=== PATIENT | female | born 1995 | race American Indian/Alaskan Native ===

== ENCOUNTER 2016-12-19 19:56 | Emergency (ER) | payer MEDICAID ==
[2016-12-19 20:05] VITALS: O2SAT 98
[2016-12-19] MEDS ORDERED: Sodium Chloride 0.9% 1,000 ML IV ONE (20:30)
[2016-12-19] MEDS ORDERED: Sodium Chloride 0.9% 1,000 ML ONE (20:47)
[2016-12-19 20:54] LABS: BASO % 0.3 % (0.0-2.0); EOS % 0.3 % (0.0-4.0); HEMATOCRIT 37.9 % (34.0-47.0); LYMPH % 9.1 % (20.0-40.0); MEAN CELL VOLUME 75.1 fL (81.0-99.0); MEAN CORPUSCULAR HEMOGLOBIN 23.7 pg (27.0-31.0); MEAN CORPUSCULAR HGB CONC 31.6 g/dL (33.0-37.0); MEAN PLATELET VOLUME 9.3 fL (7.2-11.7); MONO # 0.5 K/uL (0.0-0.8); MONO % 4.4 % (0.0-10.0); PLATELET COUNT 257 K/uL (130-400); RED CELL DISTRIBUTION WIDTH 14.3 % (11.5-14.5)
[2016-12-19 20:59] LABS: CHLORIDE 98 mmol/L (98-107); POTASSIUM 3.9 mmol/L (3.6-5.2); SODIUM 140 mmol/L (132-148); WHITE BLOOD COUNT 10.6 K/uL (4.8-10.8)
[2016-12-19 21:01] LABS: BILIRUBIN,TOTAL 0.5 mg/dL (0.2-1.3); CARBON DIOXIDE 24 mmol/L (22-30); GFR AFRICAN-AMERICAN > 60
[2016-12-19 21:02] LABS: ALB/GLOB RATIO 1.2 (1.0-2.1); ALKALINE PHOSPHATASE 61 U/L (38-126); ALT/SGPT 11 U/L (9-52); AST/SGOT 13 U/L (14-36); BLOOD UREA NITROGEN 14 mg/dL (7-17); CALCIUM 8.9 mg/dl (8.6-10.4); GLUCOSE,RANDOM 89 mg/dL (65-105); TOTAL PROTEIN 7.9 g/dL (6.3-8.3)
--- NOTE | 2016-12-19 21:02 | C.PDOC ---
History Of Present Illness A P:0 21 year old female presents to the emergency room with complaints of epigastric discomfort and vomiting that began earlier today. There are no exacerbating or relieving factors. Patient denies being , any back pain , constipation, hematuria, incontinence, dysuria, vaginal bleeding, vaginal discharge, fever, chills, diarrhea, or any other complaints. Time Seen by Provider: 12/19/16 20:27 Chief Complaint (Nursing): Abdominal Pain History Per: Patient History/Exam Limitations: no limitations Onset/Duration Of Symptoms: Hrs Current Symptoms Are (Timing): Still Present Severity: Mild Location Of Pain/Discomfort: Epigastric Radiation Of Pain To:: None Quality Of Discomfort: "Pain" Associated Symptoms: denies: Fever, Chills, Nausea, Vomiting, Diarrhea, Back Pain, Constipation, Urinary Symptoms Exacerbating Factors: None Alleviating Factors: None Recent travel outside of the [place]: No Abnormal Vaginal Bleeding: No Past Medical History Reviewed: Historical Data, Nursing Documentation, Vital Signs Vital Signs: Last Vital Signs Temp 98.4 F 12/19/16 20:02 Pulse 89 12/19/16 20:02 Resp 16 12/19/16 20:02 BP 124/84 12/19/16 20:02 Pulse Ox 98 12/19/16 21:05 Family History: States: Unknown Family Hx - Social History Hx Tobacco Use: No Hx Alcohol Use: No Hx Substance Use: No - Immunization History Hx Influenza Vaccination: No Hx Pneumococcal Vaccination: No Review Of Systems Except As Marked, All Systems Reviewed And Found Negative. Constitutional: Negative for: Fever, Chills Gastrointestinal: Positive for: Vomiting, Abdominal Pain (Epigastric). Negative for: Diarrhea, Constipation Genitourinary: Negative for: Dysuria, Frequency, Incontinence, Hematuria, Vaginal Discharge, Vaginal Bleeding Musculoskeletal: Negative for: Back Pain Physical Exam - Physical Exam Appears: Non-toxic, Other (Tall black woman.) Skin: Normal Color, Warm, Dry Head: Atraumatic, Normacephalic Neck: Normal ROM, No Midline Cervical Tenderness, No Paracervical Tenderness, Supple Chest: Symmetrical, No Tenderness Cardiovascular: Rhythm Regular Respiratory: Normal Breath Sounds, No Rales, No Rhonchi, No Wheezing Gastrointestinal/Abdominal: Soft, No Tenderness, No Distention, No Guarding, No Rebound Back: Normal Inspection, No CVA Tenderness, No Vertebral Tenderness Extremity: Normal ROM, No Tenderness Neurological/Psych: Oriented x3, Normal Speech, Normal Cognition Gait: Steady ED Course And Treatment - Laboratory Results Result Diagrams: 12/19/16 20:46 12/19/16 20:46 Lab Interpretation: Normal (ua, tox, etoh neg) Urine POC: Negative O2 Sat by Pulse Oximetry: 98 - Radiology CXR: Interpreted by Me CXR Interpretation: Yes: No Acute Disease - Other Rad abd x2 X-Ray: Interpreted by Me (wnl) Medical Decision Making Medical Decision Making: Plan: -- Labs -- Obstructive Series X-ray -- Zofran & Pepcid vomiting, no diarrhea, not pregant. Disposition Doctor Will See Patient In The: Office Counseled Patient/Family Regarding: Studies Performed, Diagnosis - Disposition Disposition: HOME/ ROUTINE Disposition Time: 21:51 Condition: GOOD - Clinical Impression Clinical Impression: Vomiting - Scribe Statement The provider has reviewed the documentation as recorded by the Rashid Evans Provider Scribe Attestation: All medical record entries made by the Rashid were at my direction and personally dictated by me. I have reviewed the chart and agree that the record accurately reflects my personal performance of the history, physical exam, medical decision making, and the department course for this patient. I have also personally directed, reviewed, and agree with the discharge instructions and disposition.
[2016-12-19 21:03] LABS: ALCOHOL SERUM < 10 mg/dl (0-10)
[2016-12-19 21:07] LABS: RBC URINE < 1 /hpf (0-3); TRANSITIONAL EPITHIAL < 1 /hpf (0-3); URINE BACTERIA RARE (<OCC); URINE BILIRUBIN NEGATIVE (NEGATIVE); URINE BLOOD NEGATIVE (NEGATIVE); URINE COLOR Yellow (YELLOW); URINE GLUCOSE (UA) NORMAL (Normal); URINE KETONE NEGATIVE (NEGATIVE); URINE LEUKOCYTE ESTERASE NEG Leu/uL (Negative); URINE PROTEIN 1+ mg/dL (NEGATIVE); URINE UROBILINOGEN NORMAL mg/dL (0.2-1.0); WBC URINE 1 /hpf (0-5)
[2016-12-19 21:58] VITALS: BP 133/79; PULSE 82; RESP 17; TEMP 97.9
[2016-12-19 22:27] LABS: NEUTROPHIL 85 % (50-75); TOTAL CELLS COUNTED 100
[2016-12-19 22:28] LABS: LARGE PLATELETS PRESENT
--- NOTE | 2016-12-20 10:30 | RAD ---
PROCEDURE: Radiographs of the chest and abdomen (obstructive series) HISTORY: abd pain COMPARISON: No prior. TECHNIQUE: AP radiograph of the chest, with upright and supine radiographs of the abdomen. FINDINGS: CHEST: Lungs: Clear. Cardiovascular: Normal size heart. No pulmonary vascular congestion. Pleura: No pleural fluid. No pneumothorax. Other findings: None. ABDOMEN AND PELVIS: Bowel: Unremarkable bowel gas pattern. No evidence of mechanical obstruction. Free air: None. Bones: Unremarkable. Other findings: None. IMPRESSION: Unremarkable radiographs of chest and abdomen. No evidence of mechanical bowel obstruction.
== END 2016-12-19 22:00 | disposition home or self-care (01) ==
LOC: C.ER 19:56
DX: R11.10 Vomiting, unspecified (principal)
CPT/HCPCS: 74022; 80053; 80320; 80324; 80345; 80346; 80349; 80353; 80358; 80361; 81001; 83690; 83992; 84703; 85025; 96361; 96374; 96375; 99284; J2405; J7040

== ENCOUNTER 2017-06-06 02:15 | Emergency (ER) | payer MEDICAID ==
[2017-06-06 02:27] VITALS: BP 132/68; PULSE 84; RESP 16; TEMP 98.1; O2SAT 100
--- NOTE | 2017-06-06 03:07 | C.PDOC ---
History Of Present Illness The patient is a 21yo female, presents to the ED for evaluation of a painful lump in her left axilla, present for the past two days. She denies any trauma to the area and also denies any fever or drainage from the area. She offers no other medical complaints. Time Seen by Provider: 06/06/17 02:33 Chief Complaint (Nursing): Abnormal Skin Integrity History Per: Patient History/Exam Limitations: no limitations Onset/Duration Of Symptoms: Days (2) Current Symptoms Are (Timing): Still Present Quality Of Symptoms: Painful Recent travel outside of the [place]: No Additional History Per: Patient Past Medical History Reviewed: Historical Data, Nursing Documentation, Vital Signs Vital Signs: Last Vital Signs Temp 98.1 F 06/06/17 02:23 Pulse 84 06/06/17 02:23 Resp 16 06/06/17 02:23 BP 132/68 06/06/17 02:23 Pulse Ox 100 06/06/17 03:52 - Medical History PMH: No Chronic Diseases Surgical History: No Surg Hx Family History: States: Unknown Family Hx - Social History Hx Tobacco Use: No Hx Alcohol Use: No Hx Substance Use: No - Immunization History Hx Influenza Vaccination: No Hx Pneumococcal Vaccination: No Review Of Systems Constitutional: Negative for: Fever Musculoskeletal: Positive for: Other (painful lump in left axilla) Physical Exam - Physical Exam Appears: Non-toxic, No Acute Distress Skin: Normal Color, Warm, Dry Head: Atraumatic, Normacephalic Eye(s): bilateral: Normal Inspection Neck: Normal, Supple Chest: Symmetrical Cardiovascular: Rhythm Regular Respiratory: Normal Breath Sounds Extremity: Normal ROM (full ROM of left arm; normal strength of left arm), Capillary Refill (< 2 seconds), No Deformity, No Swelling, Other (1x1cm area of induration and tenderness to left axilla, no fluctuance, erythema or drainage noted. ) Neurological/Psych: Oriented x3, Normal Speech, Normal Cognition ED Course And Treatment O2 Sat by Pulse Oximetry: 100 (RA) Pulse Ox Interpretation: Normal Medical Decision Making Medical Decision Making: Impression: Abscess in left axilla Plan: -- Based on presentation of abscess, an I&D is not indicated. Patient advised to take antibiotics as prescribed and do warm soaks and to return to the ED in 2 days for a wound check. -- Motrin 800 mg PO ordered for pain. Time: 4 Patient reports pain has improved. Stable for discharge home. Disposition Counseled Patient/Family Regarding: Diagnosis, Need For Followup, Rx Given - Disposition Referrals: Karrie Guadarrama [Medical Doctor] - Disposition: HOME/ ROUTINE Disposition Time: 03:04 Condition: STABLE Additional Instructions: Please follow up with PMD in 1-2 days or in ED for wound check Take meds as directed Apply warm compress to areas Return to ER if worse Prescriptions: Cephalexin [Keflex] 500 mg PO QID #28 capsule Ibuprofen [Motrin] 600 mg PO Q6H #20 tab Sulfamethoxazole/Trimethoprim [Bactrim DS 800 mg-160 mg] 1 tab PO BID #14 tab Instructions: Abscess (ED) Forms: [employer] (Yakut) - Clinical Impression Clinical Impression: Abscess of axilla, left - PA / TRUCK REPAIR SERVICE ESTIMATOR / Resident Statement MD/DO has reviewed & agrees with the documentation as recorded. MD/DO has examined the patient and agrees with the treatment plan. - Scribe Statement The provider has reviewed the documentation as recorded by the Rashid Wright All medical record entries made by the Rashid were at my direction and personally dictated by me. I have reviewed the chart and agree that the record accurately reflects my personal performance of the history, physical exam, medical decision making, and the department course for this patient. I have also personally directed, reviewed, and agree with the discharge instructions and disposition.
== END 2017-06-06 03:16 | disposition home or self-care (01) ==
LOC: C.ER 02:15
DX: L02.412 Cutaneous abscess of left axilla (principal)

== ENCOUNTER 2018-04-07 07:16 | Emergency (ER) | payer MEDICAID ==
[2018-04-07 07:34] VITALS: BP 118/76; PULSE 89; RESP 18; TEMP 98.4; O2SAT 98
--- NOTE | 2018-04-07 07:47 | C.PDOC ---
History Of Present Illness 22yo female, comes to ER for evaluation of a whitish discharge since 5 days ago. Patient states 6 days ago, she was evaluated by her TABLE OPERATOR and had a pap smear and had chlamydia and gonorrhea cultures sent. She also reports she has a history of frequent episodes of BV and feels the discharge might be due to that. Otherwise, she denies any fever, chills, vaginal bleeding, pelvic pain, burning, dysuria or hematuria. No other complaints. Time Seen by Provider: 04/07/18 07:24 Chief Complaint (Nursing): Female Genitourinary History Per: Patient History/Exam Limitations: no limitations Onset/Duration Of Symptoms: Days, Waxing/Waning Severity: Mild Associated Symptoms: denies: Nausea, Vomiting, Loss Of Appetite Recent travel outside of the [place]: No Additional History Per: Patient Abnormal Vaginal Bleeding: No Past Medical History Reviewed: Historical Data, Nursing Documentation, Vital Signs Vital Signs: Last Vital Signs Temp 98.4 F 04/07/18 07:34 Pulse 89 04/07/18 07:34 Resp 18 04/07/18 07:34 BP 118/76 04/07/18 07:34 Pulse Ox 98 04/07/18 15:27 - Medical History PMH: No Chronic Diseases Surgical History: No Surg Hx Family History: States: No Known Family Hx, Unknown Family Hx - Social History Hx Tobacco Use: No Hx Alcohol Use: Yes Hx Substance Use: No - Immunization History Hx Influenza Vaccination: No Hx Pneumococcal Vaccination: No Review Of Systems Except As Marked, All Systems Reviewed And Found Negative. Gastrointestinal: Negative for: Nausea, Vomiting, Abdominal Pain Genitourinary: Positive for: Vaginal Discharge. Negative for: Dysuria, Frequency, Hematuria, Vaginal Bleeding, Pelvic Pain Musculoskeletal: Negative for: Back Pain Physical Exam - Physical Exam Appears: Non-toxic, No Acute Distress Skin: Normal Color Head: Normacephalic Eye(s): bilateral: Normal Inspection Neck: Normal ROM, Supple Chest: Symmetrical Cardiovascular: Rhythm Regular Respiratory: Normal Breath Sounds Gastrointestinal/Abdominal: Soft, No Tenderness Back: Normal Inspection, No CVA Tenderness Extremity: Normal ROM Neurological/Psych: Oriented x3 ED Course And Treatment - Laboratory Results Urine POC: Positive O2 Sat by Pulse Oximetry: 98 (RA) Pulse Ox Interpretation: Normal Progress Note: Urinalysis and Upreg ordered. Patient requesting metrogel for treatment test (+). Patient instructed to follow up with LIVE TRUCK TECHNICIAN for further evaluation. No meds given to patient until cleared by OB Reassessment Condition: Unchanged Disposition Counseled Patient/Family Regarding: Studies Performed, Diagnosis, Need For Followup, Rx Given - Disposition Referrals: [facility] [Outside] [facility] [Outside] Disposition: HOME/ ROUTINE Disposition Time: 08:00 Condition: STABLE Additional Instructions: Follow up with your OB?Freight Car Repairer for further evaluation Instructions: Tests, Medications and , - The First Month Forms: [employer] (Japanese) - Clinical Impression Clinical Impression: - PA / OFFC SPEC / Resident Statement MD/DO has reviewed & agrees with the documentation as recorded. - Scribe Statement The provider has reviewed the documentation as recorded by the Rashid Wright Provider Attestation: All medical record entries made by the Armandoibestelle were at my direction and personally dictated by me. I have reviewed the chart and agree that the record accurately reflects my personal performance of the history, physical exam, medical decision making, and the department course for this patient. I have also personally directed, reviewed, and agree with the discharge instructions and disposition.
[2018-04-07 08:16] LABS: HCG,QUALITATIVE URINE POSITIVE (NEGATIVE)
[2018-04-07 08:20] LABS: SQUAMOUS EPITHIAL 7 /hpf (0-5); URINE BILIRUBIN NEGATIVE (NEGATIVE); URINE BLOOD NEGATIVE (NEGATIVE); URINE CLARITY Hazy (Clear); URINE COLOR Yellow (YELLOW); URINE GLUCOSE (UA) NORMAL (Normal); URINE LEUKOCYTE ESTERASE NEG Leu/uL (Negative); URINE PROTEIN NEGATIVE (NEGATIVE); URINE UROBILINOGEN NORMAL mg/dL (0.2-1.0)
== END 2018-04-07 08:46 | disposition home or self-care (01) ==
LOC: C.ER 07:16
DX: O26.891 Other specified pregnancy related conditions, first trimester (principal); Z3A.00 Weeks of gestation of pregnancy not specified

== ENCOUNTER 2018-07-03 05:15 | Emergency (ER) | payer MEDICAID ==
[2018-07-03 05:16] VITALS: BMI 29.2
[2018-07-03] MEDS ORDERED: Oxycodone/Acetaminophen 5/325 mg Tab PO STA (05:45)
[2018-07-03] MEDS ORDERED: Oxycodone/Acetaminophen 5/325 mg Tab ONE (05:50)
--- NOTE | 2018-07-03 05:51 | C.PDOC ---
History Of Present Illness 22 year old female complains of pain to right axilla for few days and went to [facility] 3 days ago for evaluation. They gave her Bactrim DS but no pain medicine and she continues to have pain. Chief Complaint (Nursing): Abnormal Skin Integrity History Per: Patient History/Exam Limitations: no limitations Onset/Duration Of Symptoms: Days Current Symptoms Are (Timing): Still Present Location Of Injury: Right: Arm (Axilla) Quality Of Symptoms: Painful Recent travel outside of the [place]: No Past Medical History Reviewed: Historical Data, Nursing Documentation, Vital Signs Vital Signs: Last Vital Signs Temp 98.5 F 07/03/18 05:21 Pulse 84 07/03/18 05:21 Resp 14 07/03/18 05:21 BP 112/75 07/03/18 05:21 Pulse Ox 100 07/03/18 05:21 Family History: States: Unknown Family Hx - Social History Hx Tobacco Use: No Hx Alcohol Use: Yes Hx Substance Use: No - Immunization History Hx Influenza Vaccination: No Hx Pneumococcal Vaccination: No Review Of Systems Constitutional: Negative for: Fever, Chills Skin: Positive for: Other (erythema and induration to right axilla) Neurological: Negative for: Weakness, Numbness Physical Exam - Physical Exam Appears: Non-toxic Skin: Warm, Dry Head: Atraumatic, Normacephalic Eye(s): bilateral: Normal Inspection Extremity: Normal ROM (x4), Capillary Refill (<2 seconds), Other (erythema and induration to right axilla around 11oclock, no fluctuance) Pulses: Left Radial: Normal, Right Radial: Normal Neurological/Psych: Oriented x3, Normal Speech, Normal Motor, Normal Sensation ED Course And Treatment O2 Sat by Pulse Oximetry: 100 (Room air) Pulse Ox Interpretation: Normal Medical Decision Making Medical Decision Making: Impression: abscess, not ready to drain Plan: Percocet PO Dispo: Recommend warm compress to area and to take analgesic and antibiotics. Advise follow up with general surgery or follow up in few days. Disposition Counseled Patient/Family Regarding: Diagnosis, Need For Followup, Rx Given - Disposition [facility]Outside[facility]] Disposition: HOME/ ROUTINE Disposition Time: 05:48 Condition: STABLE Additional Instructions: Apply warm compress to area Take antibiotics twice daily Take pain medicine as needed Follow up with your doctor or gen surgeon for further evaluation Prescriptions: Cephalexin [cephalexin] 500 mg PO Q12 #14 cap oxyCODONE/Acetaminophen [Percocet 5/325 mg Tab] 1 tab PO Q8 PRN #15 tab PRN Reason: Pain, Severe (8-10) Instructions: Boil (DC) Forms: [employer] (Latvian) - POA Present On Arrival: None - Clinical Impression Clinical Impression: Axillary abscess - PA / TIRE MANAGER / Resident Statement MD/DO has reviewed & agrees with the documentation as recorded. - Scribe Statement The provider has reviewed the documentation as recorded by the Scribestelle Thomas All medical record entries made by the Rashid were at my direction and personally dictated by me. I have reviewed the chart and agree that the record accurately reflects my personal performance of the history, physical exam, medical decision making, and the department course for this patient. I have also personally directed, reviewed, and agree with the discharge instructions and disposition.
[2018-07-03 06:07] VITALS: BP 128/66; PULSE 81; RESP 20; TEMP 97.2
[2018-07-03 06:11] VITALS: O2SAT 100
== END 2018-07-03 06:07 | disposition home or self-care (01) ==
LOC: C.ER 05:15
DX: L02.411 Cutaneous abscess of right axilla (principal)

== ENCOUNTER 2018-07-21 17:35 | Emergency (ER) | payer MEDICAID ==
[2018-07-21 17:35] VITALS: BMI 29.2
[2018-07-21 17:49] VITALS: BP 110/74; PULSE 78; RESP 18; TEMP 98.6; O2SAT 100
--- NOTE | 2018-07-21 18:09 | C.PDOC ---
History Of Present Illness Patient c/o pain in the right axilla for 1 month. Patient sts she was seen at the [facility] and was given Rx for Bactrim. After several days of treatment patient was seen here, was evaluated, was told she may have an abscess that is not ready to drain and was d/c home. patient sts she didn't follow up as instructed, she finished all prescribed medications, but pain is not goes away. patient denies fever, no drainage. Time Seen by Provider: 07/21/18 17:54 Chief Complaint (Nursing): Abnormal Skin Integrity History Per: Patient Past Medical History Reviewed: Historical Data, Nursing Documentation, Vital Signs Vital Signs: Last Vital Signs Temp 98.6 F 07/21/18 17:47 Pulse 78 07/21/18 17:47 Resp 18 07/21/18 17:47 BP 110/74 07/21/18 17:47 Pulse Ox 100 07/21/18 17:47 Family History: States: Unknown Family Hx - Social History Hx Tobacco Use: No Hx Alcohol Use: Yes Hx Substance Use: No - Immunization History Hx Influenza Vaccination: No Hx Pneumococcal Vaccination: No Review Of Systems Except As Marked, All Systems Reviewed And Found Negative. Physical Exam - Physical Exam Appears: Well, Non-toxic, No Acute Distress Skin: Normal Color, Warm, No Rash, No Cyanotic, No Ecchymosis, Other (no erythema, warmth of the right axilla. Area is tender and firm mass like structure was plapated.) Head: Atraumatic, Normacephalic Eye(s): bilateral: Normal Inspection Neck: Normal ROM, No Midline Cervical Tenderness, No Paracervical Tenderness, Supple Chest: Symmetrical, No Deformity, No Tenderness Cardiovascular: Rhythm Regular Respiratory: Normal Breath Sounds Gastrointestinal/Abdominal: Soft, No Tenderness Extremity: Normal ROM, No Swelling Neurological/Psych: Oriented x3, Normal Speech, Normal Cognition ED Course And Treatment - Laboratory Results Result Diagrams: 07/21/18 18:31 07/21/18 18:31 O2 Sat by Pulse Oximetry: 100 - CT Scan/US CT Chest Other Rad Studies (CT/US): Read By Radiologist, Radiology Report Reviewed CT/US Interpretation: Name:JOSEMANUEL MARTIN Exam Date:Jul 21, 2018 7:35:20 PM EDT. Modality Type:CT. Description:CT - CHEST WITH CORONAL AND SAGITTAL MPRS. Gender:F Laterality:Not applicable. :96 Referring Physician:Ilene Hogan). EXAM: CT Chest with Intravenous Contrast. CLINICAL HISTORY: RIGHT AXILLA ABSCESS. TECHNIQUE: Axial computed tomography images of the chest with intravenous contrast. DLP 715. CONTRAST: With; VISIPAQUE 320 100CC. COMPARISON: None provided. FINDINGS: there is subcutaneous edema and ill-defined fluid in the superior r ight axilla at the superior margin of this examination. No clear abscess is seen. LUNGS: The lungs appear essentially clear. No pulmonary mass. PLEURAL SPACES: No pneumothorax evident. No pleural effusions. HEART: No cardiomegaly. No significant pericardial effusion. LYMPH NODES: No lympha denopathy is evident. BONES: No focal osseous abnormality or acute fracture. UPPER ABDOMEN: The upper abdominal solid organs are unremarkable. IMPRESSION: 1. Subcutaneous edema and ill-defined fluid in the superolateral aspect of the right axilla. This is at the superior margin of this examination and not fully visualized. This is consistent with cellulitis and phlegmonous inflammation. No clear abscess is seen. 2. Otherwise unremarkable chest CT. . Electronically signed on Jul 21, 2018 7:56:02 PM EDT by: Shin Murrieta M.D. Certified by [facility] Fellowship Trained MRI Subspecialist Progress Note: Labs and CT chest with IV contrust ordered. Patient was evaluated by surgery resident, I&D was attempted, got brownish fluid that was sent for culture. Patient was d/c home on Clindamycin with instructions to f/u with . Disposition - Disposition Referrals: Raymond Merino MD [Staff Provider] - Disposition: HOME/ ROUTINE Disposition Time: 21:14 Condition: STABLE Additional Instructions: Follow up with General home health billing specialist within 2-3 days. Return to ED if feel worse. Prescriptions: Clindamycin [Cleocin] 300 mg PO Q6 #28 cap Instructions: Abscess Incision and Drainage Forms: [employer] (Telugu), Work Excuse - Clinical Impression Clinical Impression: Axillary abscess
[2018-07-21] MEDS ORDERED: Sodium Chloride 0.9% 1,000 ML IV STA (18:11)
[2018-07-21] MEDS ORDERED: Iodixanol 320 MG/ML 100 ML BOTTLE IV ONE (18:30)
[2018-07-21 18:38] LABS: BASO % 0.5 % (0.0-2.0); EOS # 0.1 K/uL (0.0-0.7); EOS % 1.5 % (0.0-4.0); HEMOGLOBIN 11.4 g/dL (11.0-16.0); LYMPH # 1.9 K/uL (1.0-4.3); LYMPH % 25.3 % (20.0-40.0); MEAN CORPUSCULAR HEMOGLOBIN 23.4 pg (27.0-31.0); MEAN PLATELET VOLUME 8.6 fL (7.2-11.7); MONO # 0.6 K/uL (0.0-0.8); MONO % 7.6 % (0.0-10.0); NEUT % 65.1 % (50.0-75.0); RBC 4.89 Mil/uL (3.80-5.20); RED CELL DISTRIBUTION WIDTH 14.8 % (11.5-14.5); WHITE BLOOD COUNT 7.7 K/uL (4.8-10.8)
[2018-07-21] MEDS ORDERED: Sodium Chloride 0.9% 1,000 ML ONE (18:44)
[2018-07-21 18:57] LABS: ALB/GLOB RATIO 1.2 (1.0-2.1); ALBUMIN 4.1 g/dL (3.5-5.0); ALT/SGPT 20 U/L (9-52); AST/SGOT 23 U/L (14-36); BLOOD UREA NITROGEN 10 mg/dL (7-17); CALCIUM 8.9 mg/dl (8.6-10.4); GFR NON-AFRICAN AMERICAN > 60
[2018-07-21] MEDS ORDERED: HYDROmorphone 0.5 mg/0.5 ml ISec IVP STA (20:24)
[2018-07-21] MEDS ORDERED: Lidocaine 1% Inj (20ml) IV ONE (20:24)
[2018-07-21] MEDS ORDERED: Lidocaine Hydrochloride 10 ML INJ ONE (20:30)
[2018-07-21] MEDS ORDERED: Morphine 4 MG/ML VIAL ONE (20:33)
--- NOTE | 2018-07-21 21:15 | CP.PCM.CON ---
History of Present Illness - History of Present Illness History of Present Illness: Surgery 22 F w h/o axillary abscess came to ED with recurrent pain,swelling on her R axilla. Pt had abscess before and had I & D done in the past. Denies fever, nausea, vomiting, diarrhea. c/o dec ROM of the arm. PMH axillary abscess PSH I&D Review of Systems - Review of Systems Review of Systems: see HPI Past Patient History - Infectious Disease Hx of Infectious Diseases: None - Past Social History Smoking Status: Never Smoked - PSYCHIATRIC Hx Substance Use: No - SURGICAL HISTORY Hx Surgeries: No - ANESTHESIA Hx Anesthesia: No Meds Home Medications: Home Medication List Medication Instructions Recorded Confirmed Type Clindamycin [Cleocin] 300 mg PO Q6 #28 cap 07/21/18 Rx Allergies/Adverse Reactions: Allergies Allergy/AdvReac Type Severity Reaction Status Date / Time No Known Allergies Allergy Verified 07/21/18 17:46 Physical Exam - Constitutional Appears: No Acute Distress - Head Exam Head Exam: ATRAUMATIC, NORMAL INSPECTION, NORMOCEPHALIC - Eye Exam Eye Exam: EOMI, Normal appearance, PERRL Pupil Exam: NORMAL ACCOMODATION, PERRL - ENT Exam ENT Exam: Mucous Membranes Moist - Neck Exam Neck exam: Positive for: Normal Inspection - GI/Abdominal Exam GI & Abdominal Exam: Soft. absent: Tenderness - Rectal Exam Rectal Exam: NORMAL INSPECTION - Exam Exam: NORMAL INSPECTION - Extremities Exam Extremities exam: Positive for: tenderness. Negative for: full ROM, normal inspection Additional comments: R axilla has [id number] fluctance. TTP. no eryhtema. Results - Vital Signs Recent Vital Signs: Last Vital Signs Temp 98.6 F 07/21/18 17:47 Pulse 78 07/21/18 17:47 Resp 18 07/21/18 17:47 BP 110/74 07/21/18 17:47 Pulse Ox 100 07/21/18 20:01 - Labs Result Diagrams: 07/21/18 18:31 07/21/18 18:31 Labs: Laboratory Results - last 24 hr 07/21/18 07/21/18 07/21/18 18:31 18:31 18:31 WBC 7.7 RBC 4.89 Hgb 11.4 Hct 35.7 MCV 73.0 L D MCH 23.4 L MCHC 32.0 L RDW 14.8 H Plt Count 318 MPV 8.6 Neut % (Auto) 65.1 Lymph % (Auto) 25.3 Pacific % (Auto) 7.6 Eos % (Auto) 1.5 Baso % (Auto) 0.5 Neut # (Auto) 5.0 Lymph # (Auto) 1.9 Pacific # (Auto) 0.6 Eos # (Auto) 0.1 Baso # (Auto) 0.0 Sodium 139 Potassium 3.8 Chloride 101 Carbon Dioxide 28 Anion Gap 14 BUN 10 Creatinine 0.7 Est GFR ( Amer) > 60 Est GFR (Non-Af Amer) > 60 Random Glucose 73 Calcium 8.9 Total Bilirubin 0.4 AST 23 ALT 20 Alkaline Phosphatase 70 Total Protein 7.6 Albumin 4.1 Globulin 3.5 Albumin/Globulin Ratio 1.2 Urine HCG, Qual Negative Assessment & Plan - Assessment and Plan (Free Text) Assessment: pod 0 s/p I &D of R axillary abscess/fluids collection 20cc SS fluids mixed with purulent fluids drained. packed remove packing in 2 days. Ok to take shower w soap and water
--- NOTE | 2018-07-21 21:18 | PCM.PROC ---
- Incision & Drainage Of Abscess Anesthesia: Lidocaine 1% Used During Procedure: Continuous Pulse Oximetry, Fence Rider, Oxygen Prep Used: Betadine Procedure: Incised W/Scalpel Blade#: (10), Drained Pus, Irrigated Cavity W/Saline, Probed To Break Up Loculations, Packed W/Gauze, Cultures Obtained And Sent To Lab
--- NOTE | 2018-07-22 10:54 | CT ---
Date of service: 07/21/2018 CT chest with IV contrast Indication: R axilla mass, please include R proximal arm Technique: Contiguous axial images were obtained through the chest with intravenous contrast enhancement. Sagittal and coronal reconstructions were generated and reviewed. This CT exam was performed using 1 or more of the following dose reduction techniques: Automated exposure control, adjustment of the MAA and/or kV according to patient size, and/or use of iterative reconstruction technique. IV contrast: 100 cc visi opaque IV Radiation dose (DLP): 715.05 MGy-cm. Comparison: Chest x-ray portion of obstructive series performed 12/19/16 Findings: Visualized portions of the inferior thyroid gland appear unremarkable. The mediastinal and hilar vascular structures appear within normal limits. The heart appears within normal limits of size. No large central or segmental pulmonary embolus evident. No focal consolidation. No pleural effusion. No pneumothorax. No suspicious pulmonary nodules measuring greater than 5 mm. Partially imaged irregular appearance of the subcutaneous and superficial soft tissues at the superior margin of this examination, superior lateral aspect of the right axilla; this finding likely represents cellulitis and phlegmon possibly developing into abscess although no discrete peripheral enhancement is seen. This finding measures approximately 2.5 x 2.4 cm. No acute osseous abnormality is detected. Impression: Partially imaged irregular appearance of the subcutaneous and superficial soft tissues at the superior margin of this examination, superior lateral aspect of the right axilla; this finding likely represents cellulitis and phlegmon possibly developing into abscess although no discrete peripheral enhancement is seen. This finding measures approximately 2.5 x 2.4 cm. Preliminary impression was provided by [employer].
== END 2018-07-21 21:23 | disposition home or self-care (01) ==
LOC: C.ER 17:35
DX: L02.411 Cutaneous abscess of right axilla (principal)
CPT/HCPCS: 10060; 71260; 80053; 84703; 85025; 87070; 87181; 96361; 96374; 96375; 99284; J1885; J2270; J7030; Q9967

== ENCOUNTER 2018-07-23 13:16 | Emergency (ER) | payer MEDICAID ==
[2018-07-23 13:16] VITALS: BMI 29.2
[2018-07-23 13:20] VITALS: BP 134/79; PULSE 74; RESP 16; TEMP 98.7; O2SAT 100
--- NOTE | 2018-07-23 13:37 | C.PDOC ---
History Of Present Illness Patient had I&D of abscess right axilla done 2 days ago. Presents for packing removal, (-) fever, (-) redness, (-) swelling Time Seen by Provider: 07/23/18 13:17 Chief Complaint (Nursing): Wound Check History Per: Patient Current Symptoms Are (Timing): Gone Severity: None Past Medical History Reviewed: Historical Data, Nursing Documentation, Vital Signs Vital Signs: Last Vital Signs Temp 98.7 F 07/23/18 13:18 Pulse 74 07/23/18 13:18 Resp 16 07/23/18 13:18 BP 134/79 07/23/18 13:18 Pulse Ox 100 07/23/18 13:18 - Medical History PMH: No Chronic Diseases Surgical History: No Surg Hx Family History: States: Unknown Family Hx - Social History Hx Tobacco Use: No Hx Alcohol Use: Yes Hx Substance Use: No - Immunization History Hx Influenza Vaccination: No Hx Pneumococcal Vaccination: No Review Of Systems Skin: Positive for: Other (abscess right axilla) Physical Exam - Physical Exam Appears: Well, Non-toxic Skin: Normal Color, Other (Packing right axilla) Cardiovascular: Rhythm Regular Respiratory: Normal Breath Sounds Gait: Steady ED Course And Treatment O2 Sat by Pulse Oximetry: 100 Progress Note: Wound clean no swelling or erythema. Packing removed Reassessment Condition: Improved Disposition Counseled Patient/Family Regarding: Studies Performed - Disposition Referrals: [facility] [Outside] [facility] [Outside] Disposition: HOME/ ROUTINE Disposition Time: 13:50 Condition: IMPROVED Additional Instructions: Keep wound clean Return to ED if any redness, swelling or drainage Instructions: Wound Incision and Drainage Forms: [facility] (Martiniquais) - POA Present On Arrival: None - Clinical Impression Clinical Impression: Wound, Change of dressing
== END 2018-07-23 13:53 | disposition home or self-care (01) ==
LOC: C.ER 13:16
DX: Z48.00 Encounter for change or removal of nonsurgical wound dressing (principal)

== ENCOUNTER 2018-10-15 18:50 | Emergency (ER) | payer MEDICAID ==
[2018-10-15 18:50] VITALS: BMI 29.2
[2018-10-15 19:16] VITALS: BP 121/80; PULSE 78; RESP 20; TEMP 98.3; O2SAT 99
--- NOTE | 2018-10-15 19:41 | C.PDOC ---
History Of Present Illness 22-year-old female presents to the ED for evaluation of a painful mass over her right axillary region which developed over the past 3-4 days. Similar sx in past. Patient denies fever, chills, wound drainage, or recent injuries. Ambulatory, not in any apparent distress. Time Seen by Provider: 10/15/18 19:23 Chief Complaint (Nursing): Abnormal Skin Integrity History Per: Patient History/Exam Limitations: no limitations Onset/Duration Of Symptoms: Days (3-4) Current Symptoms Are (Timing): Still Present Quality Of Symptoms: denies: Draining Additional History Per: Patient Past Medical History Reviewed: Historical Data, Nursing Documentation, Vital Signs Vital Signs: Last Vital Signs Temp 98.3 F 10/15/18 19:12 Pulse 78 10/15/18 19:12 Resp 20 10/15/18 19:12 BP 121/80 10/15/18 19:12 Pulse Ox 99 10/15/18 19:12 - Medical History PMH: No Chronic Diseases Surgical History: No Surg Hx Family History: States: Unknown Family Hx - Social History Hx Tobacco Use: No Hx Alcohol Use: Yes Hx Substance Use: No - Immunization History Hx Influenza Vaccination: No Hx Pneumococcal Vaccination: No Review Of Systems Constitutional: Negative for: Fever, Chills Skin: Positive for: Other (painful mass over right axillary region ) Physical Exam - Physical Exam Appears: Well, Non-toxic, No Acute Distress Skin: Normal Color, Warm, Other (2cm tender mass over Right axilla, soft, no erythema, no flactulance, no proximal streaking) Eye(s): bilateral: PERRL Chest: Symmetrical, No Deformity, No Tenderness Extremity: Normal ROM (RUE), No Tenderness, No Deformity, No Swelling Neurological/Psych: Oriented x3, Normal Speech, Normal Motor, Normal Sensation, Normal Reflexes ED Course And Treatment O2 Sat by Pulse Oximetry: 99 (on RA ) Pulse Ox Interpretation: Normal Progress Note: On re-eval, pt is afebrile, hemodynamicaly stable. Non-toxic. Right axilla : small furuncle, no flactulance. Pt advised. ref. to f/u with PMD in 2-3 days for re-eval. return if any new changes. Disposition Counseled Patient/Family Regarding: Diagnosis, Need For Followup, Rx Given - Disposition Referrals: Triny Huerta [Medical Doctor] - Disposition: HOME/ ROUTINE Disposition Time: 19:39 Condition: STABLE Additional Instructions: Take medication as prescribed Warm salty water compresses to area twice daily Follow up with Surgery or return to ED if any worsening or new changes. Prescriptions: Doxycycline Hyclate [Doryx] 100 mg PO BID #14 cap Instructions: Boil Forms: [employer] (Bangladeshi) - Clinical Impression Clinical Impression: Furuncle - PA / PANEL INSTALLER / Resident Statement MD/DO has reviewed & agrees with the documentation as recorded. - Scribe Statement The provider has reviewed the documentation as recorded by the Scribe (Erin Neil) All medical record entries made by the Scribe were at my direction and personally dictated by me. I have reviewed the chart and agree that the record accurately reflects my personal performance of the history, physical exam, medical decision making, and the department course for this patient. I have also personally directed, reviewed, and agree with the discharge instructions and disposition.
== END 2018-10-15 19:53 | disposition home or self-care (01) ==
LOC: C.ER 18:50
DX: L02.421 Furuncle of right axilla (principal)

== ENCOUNTER 2018-11-26 20:30 | Emergency (ER) | payer MEDICAID ==
[2018-11-26 20:30] VITALS: BMI 29.2
[2018-11-26 21:02] VITALS: BP 144/80; PULSE 85; RESP 20; TEMP 98.8; O2SAT 98
--- NOTE | 2018-11-26 21:35 | C.PDOC ---
History Of Present Illness 23 year old female presents to the ED for evaluation of recurrent abscess to her right axilla region for the past 3 weeks. Patient has previous ED visits for same presentation. Patient has not yet followed up with [employer] or Surgeon for her abscess. Patient rates her pain at 6/10, reports she has been using marquez instead of shaving the area however still getting abscess. Patient denies active drainage, fever, chills, nausea, vomit, diarrhea. Time Seen by Provider: 11/26/18 21:30 Chief Complaint (Nursing): Abnormal Skin Integrity History Per: Patient History/Exam Limitations: no limitations Onset/Duration Of Symptoms: Days Current Symptoms Are (Timing): Still Present Location Of Injury: Right: Arm (axilla) Quality Of Symptoms: Painful, Swollen Recent travel outside of the [place]: No Additional History Per: Patient Past Medical History Reviewed: Historical Data, Nursing Documentation, Vital Signs Vital Signs: Last Vital Signs Temp 98.8 F 11/26/18 20:58 Pulse 85 11/26/18 20:58 Resp 20 11/26/18 20:58 BP 144/80 11/26/18 20:58 Pulse Ox 98 11/26/18 20:58 - Medical History PMH: No Chronic Diseases Surgical History: No Surg Hx Family History: States: Unknown Family Hx - Social History Hx Tobacco Use: No Hx Alcohol Use: Yes Hx Substance Use: No - Immunization History Hx Influenza Vaccination: No Hx Pneumococcal Vaccination: No Review Of Systems Constitutional: Negative for: Fever, Chills Cardiovascular: Negative for: Chest Pain, Palpitations Respiratory: Negative for: Shortness of Breath Gastrointestinal: Negative for: Nausea, Vomiting, Abdominal Pain Skin: Positive for: Other (abscess). Negative for: Rash Physical Exam - Physical Exam Appears: Non-toxic, No Acute Distress Skin: Normal Color, Warm, Dry Head: Atraumatic, Normacephalic Eye(s): bilateral: Normal Inspection Neck: Normal ROM, Supple Chest: Symmetrical Cardiovascular: Rhythm Regular Respiratory: Normal Breath Sounds, No Rales, No Rhonchi, No Wheezing Gastrointestinal/Abdominal: Soft, No Tenderness Extremity: Normal ROM, Capillary Refill (< 2 seconds), Other (2 inch diameter fluctuant tender mass to right axilla, with surrounding erythema, warm to touch and areas of induration) Pulses: Left Radial: Normal, Right Radial: Normal Neurological/Psych: Oriented x3, Normal Speech, Normal Cognition Gait: Steady ED Course And Treatment O2 Sat by Pulse Oximetry: 98 (ON RA) Pulse Ox Interpretation: Normal - Incision & Drainage Of Abscess Anesthesia: Lidocaine 1%, With Epi Used During Procedure: Continuous Pulse Oximetry Prep Used: Sterile Water, Betadine Procedure: Incised W/Scalpel Blade#: (15 gauge), Drained Pus, Irrigated Cavity W/Saline, Probed To Break Up Loculations, Packed W/Gauze Medical Decision Making Medical Decision Making: Plan: * Tylenol #3 for pain Patient tolerated the procedure well, was given Bactrim and Keflex first dose in the ED. Patient's abscess was dressed and advised to follow up for wound check. Paient verbalized understanding and is in agreement with plan. She is stable for discharge. Return in 2 days for packing removal. Disposition Counseled Patient/Family Regarding: Diagnosis, Need For Followup, Rx Given - Disposition Referrals: Anjana Perera MD [Staff Provider] - Israel Garcia DO [Doctor Osteopathy] - Al Regalado MD [Staff Provider] - Giovani Nguyen MD [Staff Provider] - Gianluca Burnett MD [Medical Doctor] - Disposition: HOME/ ROUTINE Disposition Time: 22:33 Condition: STABLE Additional Instructions: JOSEMANUEL MARTIN, thank you for letting us take care of you today. Your provider was ED Physician and you were treated for ABSCESS UNDER RT ARMPIT. The emergency medical care you received today was directed at your acute symptoms. If you were prescribed any medication, please fill it and take as directed. It may take several days for your symptoms to resolve. Return to the Emergency Department if your symptoms worsen, do not improve, or if you have any other problems. Please contact your doctor or call one of the physicians/clinics you have been referred to that are listed on the Patient Visit Information form that is included in your discharge packet. Bring any paperwork you were given at discharge with you along with any medications you are taking to your follow up visit. Our treatment cannot replace ongoing medical care by a primary care provider outside of the emergency department. Thank you for allowing the [facility] team to be part of your care today. Prescriptions: Cephalexin [cephalexin] 500 mg PO QID #28 cap Ibuprofen [Motrin] 600 mg PO BID #30 tab Sulfamethoxazole/Trimethoprim [Bactrim DS 800 mg-160 mg] 1 tab PO BID #14 tab Instructions: Abscess Incision and Drainage (DC) Forms: [employer] (Macedonian) - Clinical Impression Clinical Impression: Axillary abscess - PA / INFANTRYMAN / Resident Statement MD/DO has reviewed & agrees with the documentation as recorded. - Scribe Statement The provider has reviewed the documentation as recorded by the Scribe Andrea Hamilton All medical record entries made by the Scribe were at my direction and personally dictated by me. I have reviewed the chart and agree that the record accurately reflects my personal performance of the history, physical exam, medical decision making, and the department course for this patient. I have also personally directed, reviewed, and agree with the discharge instructions and disposition.
[2018-11-26] MEDS ORDERED: Lidocaine 2% PF (10 ml) Amp EPI STA (21:56)
[2018-11-26] MEDS ORDERED: Lidocaine 2% MPF (5 ml) Inj ONE (22:02)
[2018-11-26] MEDS ORDERED: Acetaminophen-Codeine 300/30 mg Tab PO STA (22:34)
[2018-11-26] MEDS ORDERED: Acetaminophen-Codeine 300/30 mg Tab PO ONE (22:40)
== END 2018-11-26 22:47 | disposition home or self-care (01) ==
LOC: C.ER 20:30
DX: L02.411 Cutaneous abscess of right axilla (principal)

== ENCOUNTER 2018-11-28 14:38 | Emergency (ER) | payer MEDICAID ==
[2018-11-28 14:38] VITALS: BMI 29.2
[2018-11-28 14:55] VITALS: BP 107/70; PULSE 79; RESP 19; TEMP 98.2; O2SAT 100
--- NOTE | 2018-11-28 16:18 | C.PDOC ---
History Of Present Illness 23 year old female presents to the emergency department for wound check. Patient was seen two days ago for abscess under the right axilla. Patient denies fever, chills, nausea, and vomiting. Patient states that she is experiencing BV symptoms due to antibiotics and is requesting MetroGel. Chief Complaint (Nursing): Wound Check History Per: Patient History/Exam Limitations: no limitations Onset/Duration Of Symptoms: Days Ago (2) Current Symptoms Are (Timing): Still Present Location Of Injury: Right: Arm (axilla) Quality Of Symptoms: Other (abscess) Past Medical History Reviewed: Historical Data, Nursing Documentation, Vital Signs Vital Signs: Last Vital Signs Temp 98.2 F 11/28/18 14:51 Pulse 79 11/28/18 14:51 Resp 19 11/28/18 14:51 BP 107/70 11/28/18 14:51 Pulse Ox 100 11/28/18 14:51 - Medical History PMH: No Chronic Diseases Surgical History: No Surg Hx Family History: States: No Known Family Hx - Social History Hx Tobacco Use: No Hx Alcohol Use: No Hx Substance Use: No - Immunization History Hx Tetanus Toxoid Vaccination: Yes Hx Influenza Vaccination: No Hx Pneumococcal Vaccination: No Review Of Systems Constitutional: Negative for: Fever, Chills Gastrointestinal: Negative for: Nausea, Vomiting, Abdominal Pain, Diarrhea Physical Exam - Physical Exam Appears: Non-toxic, No Acute Distress Skin: Warm, Dry, Other (incision near right axilla, scant pus expressed) Head: Atraumatic, Normacephalic Eye(s): bilateral: Normal Inspection Oral Mucosa: Moist Neck: Normal, Supple Lymphatic: No Axilla Node Tenderness Chest: Symmetrical, No Tenderness Cardiovascular: Rhythm Regular, No Murmur Respiratory: Normal Breath Sounds, No Rales, No Rhonchi, No Wheezing Extremity: Other (right axilla: packing removed from wound; mild amount of pus expressed; repacked ) Neurological/Psych: Oriented x3, Normal Speech, Normal Cognition ED Course And Treatment O2 Sat by Pulse Oximetry: 100 (RA) Pulse Ox Interpretation: Normal Medical Decision Making Medical Decision Making: Plan; Tylenol 650mg PO Packing was removed and replaced, bandage re-applied. Patient instructed to return in 2-3 days for wound check. Disposition - Disposition Disposition: HOME/ ROUTINE Disposition Time: 16:15 Condition: STABLE Additional Instructions: Follow up in 2-3 days for wound check Prescriptions: Metronidazole [Metrogel-Vaginal] 1 ea VG QPM #7 gel Instructions: Wound Care (DC) Forms: [facility] [facility] (Montserratian), Work Excuse - Clinical Impression Clinical Impression: Axillary abscess, Wound - PA / RECYCLING PROGRAM MANAGER / Resident Statement MD/DO has reviewed & agrees with the documentation as recorded. - Scribe Statement The provider has reviewed the documentation as recorded by the Scribe
--- NOTE | 2018-11-28 16:20 | C.PDOC ---
History Of Present Illness 23 year old female presents to the emergency department for wound check. Patient was seen two days ago for abscess under the right axilla. Patient denies fever, chills, nausea, and vomiting. Patient states that she is experiencing BV symptoms due to antibiotics and is requesting MetroGel. Chief Complaint (Nursing): Wound Check History Per: Patient History/Exam Limitations: no limitations Onset/Duration Of Symptoms: Days Ago (2) Current Symptoms Are (Timing): Still Present Location Of Injury: Right: Abdomen Quality Of Symptoms: Other (abscess) Past Medical History Reviewed: Historical Data, Nursing Documentation, Vital Signs Vital Signs: Last Vital Signs Temp 98.2 F 11/28/18 14:51 Pulse 79 11/28/18 14:51 Resp 19 11/28/18 14:51 BP 107/70 11/28/18 14:51 Pulse Ox 100 11/28/18 14:51 - Medical History PMH: No Chronic Diseases Surgical History: No Surg Hx Family History: States: No Known Family Hx - Social History Hx Tobacco Use: No Hx Alcohol Use: No Hx Substance Use: No - Immunization History Hx Tetanus Toxoid Vaccination: Yes Hx Influenza Vaccination: No Hx Pneumococcal Vaccination: No Review Of Systems Constitutional: Negative for: Fever, Chills Gastrointestinal: Negative for: Nausea, Vomiting, Diarrhea Skin: Positive for: Other (abscess) Physical Exam - Physical Exam Appears: Non-toxic, No Acute Distress Skin: Warm, Dry, Other (packing removed from right axillary area, incision noted, scant pus expressed, packing replaced and bandage re-applied. ) Head: Atraumatic, Normacephalic Eye(s): bilateral: Normal Inspection, PERRL, EOMI Neck: Normal, Supple Chest: Symmetrical, No Tenderness Cardiovascular: Rhythm Regular, No Murmur Respiratory: Normal Breath Sounds, No Rales, No Rhonchi, No Wheezing Extremity: Normal ROM Neurological/Psych: Oriented x3, Normal Speech, Normal Cognition ED Course And Treatment O2 Sat by Pulse Oximetry: 100 (RA) Pulse Ox Interpretation: Normal Medical Decision Making Medical Decision Making: Plan: Tylenol 650mg PO Patient's dressing and bandage was re-applied, patient instructed to return for wound check in 2 days. Disposition - Disposition Additional Instructions: Follow up in 2-3 days for wound check Prescriptions: Metronidazole [Metrogel-Vaginal] 1 ea VG QPM #7 gel Instructions: Wound Care (DC) Forms: [facility] (Icelandic), Work Excuse - Clinical Impression Clinical Impression: Axillary abscess, Wound - PA / WATER TECHNICIAN / Resident Statement MD/DO has reviewed & agrees with the documentation as recorded. - Scribe Statement The provider has reviewed the documentation as recorded by the Scribe (Edgard De La Vega) All medical record entries made by the Scribe were at my direction and personally dictated by me. I have reviewed the chart and agree that the record accurately reflects my personal performance of the history, physical exam, medical decision making, and the department course for this patient. I have also personally directed, reviewed, and agree with the discharge instructions and disposition.
== END 2018-11-28 16:19 | disposition home or self-care (01) ==
LOC: C.ER 14:38
DX: L02.411 Cutaneous abscess of right axilla (principal); Z48.00 Encounter for change or removal of nonsurgical wound dressing

== ENCOUNTER 2018-11-30 18:38 | Emergency (ER) | payer MEDICAID | END 2018-11-30 20:16 | disposition home or self-care (01) | LOC: C.ER 18:38 ==